=== PATIENT | male | born 1950 | race Caucasian/White ===

== ENCOUNTER 2016-09-05 13:16 | Emergency (ER) | payer OTHER, MEDICAID ==
[~2016-09-05] VITALS: Ht 175.3 cm; Wt 79.4 kg
[~2016-09-05 13:16] MED LIST: BECL8.7A5 INH; CARV3.1246 PO; DILT120C2 PO; GLIP5TAB13 PO; IBUP-1969 PO; INSU10VI4 SUBCUT; LEVO175T7 PO; LEVO50TA8 PO; OMEP20CA10 PO
[2016-09-05 13:41] VITALS: BP_SYST 140
[2016-09-05] MEDS ORDERED: MORPHINE SULFATE 10 MG/ML VIAL IM ONE (15:30)
[2016-09-05] MEDS ORDERED: DIPHENHYDRAMINE INJ 50 MG/ML VIAL IM ONE (15:30)
[2016-09-05 17:00] VITALS: BP_SYST 140
== END 2016-09-05 17:00 | disposition home or self-care (01) ==
LOC: SED 13:16
DX: M25.461 Effusion, right knee (principal); I10 Essential (primary) hypertension; E11.9 Type 2 diabetes mellitus without complications; K21.9 Gastro-esophageal reflux disease without esophagitis; Z85.830 Personal history of malignant neoplasm of bone; Z85.828 Personal history of other malignant neoplasm of skin; Z85.850 Personal history of malignant neoplasm of thyroid; Z98.890 Other specified postprocedural states; Z79.4 Long term (current) use of insulin; Z79.899 Other long term (current) drug therapy
CPT/HCPCS: 73564; 93971; 96372; 99284; J1200; J2270

== ENCOUNTER 2017-05-04 14:28 | Emergency (ER) | payer OTHER, MEDICAID ==
[~2017-05-04] VITALS: Ht 175.3 cm; Wt 78.9 kg
[2017-05-04 14:30] VITALS: BP_SYST 94
--- NOTE | 2017-05-04 14:35 | NUR ---
Jaya burton in ED - 05/04/17 at 1600 by ADRI TRIAGED AND BROUGHT BACK TO BED #8, REPORT GIVEN TO BEULAH
--- NOTE | 2017-05-04 15:00 | NUR ---
BROUGHT BACK TO BED #7 AND REPORT GIVEN TO BEULAH
--- NOTE | 2017-05-04 15:19 | NUR ---
Patient complaining of vomiting and productive cough with green sputum since midnight this morning. Patient's states that he stopped vomiting at 7 am and started vomiting again 30 mins prior to arrival to ED. Patient denies any shortness of breath or pain. Patient is afebrile. No other complaints/injuries per patient or as noted. WIll continue to monitor.
--- NOTE | 2017-05-04 15:45 | NUR ---
ER at bedside examining patient.
[2017-05-04 16:06] VITALS: BP_SYST 124
--- NOTE | 2017-05-04 16:06 | NUR ---
Patient given written and verbal discharge instructions and verbalizes understanding. ER MD discussed with patient the results and treatment provided. Patient in stable condition. ID arm band removed. Rx of zofran given. Patient educated on pain management and to follow up with PMD. Pain Scale 0/10. Opportunity for questions provided and answered.
== END 2017-05-04 16:06 | disposition home or self-care (01) ==
LOC: SED 14:28
DX: R11.2 Nausea with vomiting, unspecified (principal); E11.9 Type 2 diabetes mellitus without complications; K21.9 Gastro-esophageal reflux disease without esophagitis; I10 Essential (primary) hypertension; Z85.830 Personal history of malignant neoplasm of bone; Z85.828 Personal history of other malignant neoplasm of skin; Z85.850 Personal history of malignant neoplasm of thyroid; Z79.899 Other long term (current) drug therapy; Z79.4 Long term (current) use of insulin
CPT/HCPCS: 99283

== ENCOUNTER 2017-06-03 13:32 | Emergency (ER) | payer OTHER, MEDICAID ==
[~2017-06-03] VITALS: Ht 175.3 cm; Wt 68.9 kg
[2017-06-03 13:42] VITALS: BP_SYST 139
--- NOTE | 2017-06-03 13:48 | NUR ---
Pt report received from BILLY Wheeler. Pt c/o generalized weakness and diarrhea x 2 weeks. Pt also reports a 20 lb weight loss. Family member at bedside.
--- NOTE | 2017-06-03 13:48 | NUR ---
Patient to ER bed 1 to gown for evaluation. Side rails up. Report given to Christoph CERVANTES.
[2017-06-03] MEDS ORDERED: NACL 0.9% 1,000 ML IV ONE (13:57)
--- NOTE | 2017-06-03 14:00 | NUR ---
Dr. Zuñiga at bedside to assess pt.
[2017-06-03 14:30] LABS: BASOPHILS % (AUTO) 0.5 % (0.0-2.0); EOSINOPHILS # (AUTO) 0.1 K/uL (0.0-0.4); HEMATOCRIT 34.8 % (36-54); HEMOGLOBIN 11.8 g/dL (14.0-18.0); LYMPHOCYTES # (AUTO) 1.2 K/uL (1.0-5.5); LYMPHOCYTES % (AUTO) 29.7 % (20.5-51.5); MEAN CORPUSCULAR HEMOGLOBIN 30 pg (27-31); MEAN CORPUSCULAR HGB CONC 34 % (32-36); MEAN CORPUSCULAR VOLUME 89 fL (79.0-98.0); MONOCYTES # (AUTO) 0.5 K/uL (0.0-1.0); MONOCYTES % (AUTO) 13.4 % (1.7-9.3); NEUTROPHILS # (AUTO) 2.1 K/uL (1.8-7.7); NEUTROPHILS % (AUTO) 53.4 % (40.0-70.0); PLATELET COUNT (AUTO) 162 K/uL (130-430); RED CELL DISTRIBUTION WIDTH 12.8 % (9.0-15.0); WHITE BLOOD COUNT (AUTO) 3.9 K/uL (4.8-10.8)
[2017-06-03 14:39] LABS: CALCIUM 8.6 mg/dL (8.4-11.0); CREATININE 0.5 mg/dL (0.55-1.30)
[2017-06-03 14:40] LABS: INR 1.1 (0.80-1.20); PROTHROMBIN TIME 10.8 SECS (9.5-12.5)
[2017-06-03 14:43] LABS: ALBUMIN 3.2 g/dL (3.4-4.8); TOTAL BILIRUBIN 0.7 mg/dL (0.0-1.0)
[2017-06-03 14:45] LABS: POTASSIUM 2.9 mmol/L (3.5-5.1)
[2017-06-03 14:48] LABS: BILIRUBIN,URINE 1+ (NEGATIVE); BLOOD, URINE 2+ (NEGATIVE); CLARITY/URINE CLEAR (CLEAR); COLOR,URINE AMBER (YELLOW); GLUCOSE,URINE NEGATIVE (NEGATIVE); KETONES,URINE NEGATIVE (NEGATIVE); LEUKOCYTE ESTERASE ,URINE NEGATIVE (NEGATIVE); NITRITE, URINE NEGATIVE (NEGATIVE); PH,URINE 5.5 (5.0-8.0); PROTEIN URINE 2+ (NEGATIVE); UROBILINOGEN,URINE 0.2 (0.2-1.0)
[2017-06-03 14:58] LABS: BACTERIA,URINE FEW /HPF (None Seen); MUCUS,URINE 3+ /LPF (None Seen); RBC,URINE 0-3 /HPF (0-3); WBC,URINE 0-3 /HPF (0-3)
--- NOTE | 2017-06-03 15:00 | NUR ---
# 20 gauge angiocath placed to LAC. Use of asceptic technique. Opsite placed over site. Blood return noted. Blood for lab drawn from site. Flushed with 10 cc of normal saline. No evidence of infiltration noted. Patient tolerated well.
[2017-06-03] MEDS ORDERED: POTASSIUM CHLORIDE 20 MEQ TAB.PRT.SR PO ONE (15:15)
[2017-06-03 16:14] VITALS: BP_SYST 139
--- NOTE | 2017-06-03 16:14 | NUR ---
Patient given written and verbal discharge instructions and verbalizes understanding. ER MD discussed with patient the results and treatment provided. Patient in stable condition. ID arm band removed. IV catheter removed intact and dressing applied, no active bleeding. Rx of Cipro given. Patient educated on pain management and to follow up with PMD in 2-3 days. Pain Scale 0/10 Opportunity for questions provided and answered. Medication side effect fact sheet provided.
== END 2017-06-03 16:14 | disposition home or self-care (01) ==
LOC: SED 13:32
DX: E87.6 Hypokalemia (principal); R19.7 Diarrhea, unspecified; E11.9 Type 2 diabetes mellitus without complications; K21.9 Gastro-esophageal reflux disease without esophagitis; I10 Essential (primary) hypertension; Z85.828 Personal history of other malignant neoplasm of skin; Z85.830 Personal history of malignant neoplasm of bone; Z85.850 Personal history of malignant neoplasm of thyroid; Z79.4 Long term (current) use of insulin
CPT/HCPCS: 36415; 80053; 81000; 83690; 85025; 85610; 99284; J7030